=== PATIENT | female | born 1995 | race Caucasian/White ===

== ENCOUNTER 2019-04-16 22:50 | Emergency (ER) | payer BC, OTHER ==
[2019-04-16 23:31] LABS: CHLORIDE,CL 101 mmol/L (98-107); SODIUM,NA 140 mmol/L (136-145)
[2019-04-16 23:32] LABS: ANION GAP 19.6 mmol/L (10-20)
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
[2019-04-16 23:55] LABS: BARBITURATE SCREEN,URINE NEGATIVE (NEGATIVE); BENZODIAZEPINES SCREEN,URINE NEGATIVE (NEGATIVE); EDDP,URINE SCREEN NEGATIVE (NEGATIVE); METHAMPHETAMINE SCREEN, URINE NEGATIVE (NEGATIVE); TCA SCREEN,URINE NEGATIVE (NEGATIVE); THC SCREEN,URINE 50 NG/ML NEGATIVE (NEGATIVE)
[2019-04-17] MEDS ORDERED: Ondansetron 4 MG/2 ML SDV IVPUSH ONE (00:09)
--- NOTE | 2019-04-17 07:48 | CT ---
[id number] CT/CT Head WO IV EXAM: NONCONTRAST HEAD CT INDICATION: Fall with head trauma and decreased level of consciousness. COMPARISON: None. DISCUSSION: Right forehead soft tissue swelling. The ventricles and sulci are normal in size and configuration. The bates and white matter are normal in attenuation. No mass effect or midline shift. No acute hemorrhage or extra-axial fluid collection. No acute territorial infarct is identified. There is near complete opacification of the right maxillary sinus and moderate left maxillary and bilateral ethmoid sinus mucosal thickening with mild focal mucosal thickening in the left sphenoid sinus. IMPRESSION: 1. No evidence of acute intracranial trauma. Hipolito Jones MD 04/17/19 0747 Thank you for allowing us to participate in the care of your patient.
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
--- NOTE | 2019-04-17 07:54 | CT ---
[id number] CT/CT Thoracic Spine WO IV EXAM: NONCONTRAST THORACIC SPINE CT INDICATION: Fall with head trauma and decreased level of consciousness. COMPARISON: None. DISCUSSION: The vertebral bodies are normal in height and alignment. No fracture or suspicious osseous lesion is identified. No significant degenerative changes are present. IMPRESSION: 1. Negative exam. Hipolito Jones MD 04/17/19 0754 Thank you for allowing us to participate in the care of your patient.
--- NOTE | 2019-04-17 07:57 | CT ---
[id number] CT/CT Lumbar Spine WO IV EXAM: NONCONTRAST LUMBAR SPINE CT INDICATION: FALL, HEAD TRAUMA, DECREASE LOC COMPARISON: None. DISCUSSION: The vertebral bodies are normal in height and alignment. No fracture or suspicious osseous lesion is identified. No significant degenerative changes are present. The urinary bladder is distended. IMPRESSION: 1. Distended urinary bladder. 2. No evidence of acute lumbar spine trauma. Hipolito Jones MD 04/17/19 0756 Thank you for allowing us to participate in the care of your patient.
== END 2019-04-17 00:30 | disposition left against medical advice (07) ==
LOC: VM.ED 22:50
DX: F10.121 Alcohol abuse with intoxication delirium (principal); S00.01XA Abrasion of scalp, initial encounter; S00.81XA Abrasion of other part of head, initial encounter; E87.6 Hypokalemia; E83.52 Hypercalcemia; Y90.8 Blood alcohol level of 240 mg/100 ml or more; X58.XXXA Exposure to other specified factors, initial encounter
CPT/HCPCS: 70450; 72125; 72128; 72131; 80053; 80305; 80320; 81001; 81025; 82550; 83735; 85025; 96372; 99285; J2405; G0480

== ENCOUNTER 2019-09-23 01:55 | Emergency (ER) | payer BC, OTHER ==
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
== END 2019-09-23 02:25 | disposition home or self-care (01) ==
LOC: VM.ED 01:55
DX: S01.81XA Laceration without foreign body of other part of head, initial encounter (principal); W22.8XXA Striking against or struck by other objects, initial encounter
CPT/HCPCS: 12011; 99282; J2001